=== PATIENT | male | born 1985 | race Caucasian/White ===

== ENCOUNTER 2022-11-10 10:27 | Emergency (ER) | payer OTHER, SELFPAY ==
[2022-11-10 10:32] VITALS: BP 131/90; PULSE 85; RESP 18; TEMP 36.9; O2SAT 99
[2022-11-10 11:44] VITALS: BP 131/90; PULSE 85; RESP 17; TEMP 36.9; O2SAT 99
--- NOTE | 2022-11-10 11:46 | ED.WOUNDLAC ---
HPI - Wound/Laceration General Chief Complaint: Wound/Laceration Stated Complaint: bites/arm Time Seen by Provider: 11/10/22 10:28 Source: patient Mode of arrival: ambulatory Limitations: no limitations History of Present Illness HPI narrative: patient is a 37-year-old male with bilateral upper arm abscesses that are draining at this time. Last tetanus shot was in the past 5 years. Patient believes he had spider bites. Onset (ago): week(s) (1) Location: other Extremity Location: Bilateral: arm Place: home Patient tetanus UTD: Yes Context: other ( Possible spider bites) Associated symptoms: pain Related Data Allergies Allergy/AdvReac Type Severity Reaction Status Date / Time tramadol Allergy Anaphylaxis Verified 11/10/22 10:31 Review of Systems Review of Systems: All systems reviewed & are unremarkable except as noted in HPI and below Constitutional: Constitutional: Reports no additional constitutional complaints Eyes: Eyes: Reports no additional eye complaints ENT: Reports system reviewed and no additional complaints, except as documented Cardiovascular: Cardiovascular: Reports no additional cardiovascular complaints Respiratory: Respiratory: Reports no additional respiratory complaints Gastrointestinal: Gastrointestinal: Reports no additional gastrointestinal complaints Genitourinary: Genitourinary: Reports no additional male genitourinary complaints Musculoskeletal: Musculoskeletal: Reports no additional musculoskeletal complaints Integumentary/Breasts: Skin/Breast: Reports system reviewed and no additional complaints, except as docu Neurologic: Reports system reviewed and no additional complaints, except as documented Psychiatric: Psychiatric: Reports no additional psychiatric complaints Endocrine: Endocrine: Reports no additional endocrine complaints Hematologic/Lymphatic: Hematologic/Lymphatic: Reports no additional hematologic/lymphatic complaints Allergic/Immunologic: Allergic/Immunologic: Reports no additional allergic/immunologic complaints Exam Const: General: healthy appearing and no acute distress Nutritional Appearance: well nourished HENMT: Head: normal to inspection Ears: external ears normal Neck: Neck: normal visual inspection Chest: Chest palpation & inspection: normal inspection of the chest Resp: Effort & Inspection: normal respiratory effort Auscultation: clear to auscultation bilaterally and no crackles Cardio: Rate: regular rate Rhythm: regular rhythm Heart sounds: no murmurs GI: Inspection: non-distended GI Palp: Yes Soft to palpation and No Tenderness to palpation present (GI) Auscultation: normal bowel sounds Back/Spine/Pelvis: Back: no CVA tenderness Skin: General skin exam: normal color, no jaundice and no pallor Other: patient has bilateral upper arm open wounds with pus seen coming from the center; there is no hard abscess or loculations needing for I&D at this time; there is light redness in a circular pattern around the abscesses of cellulitis Neuro: General: patient oriented x3, moves all extremities and no meningeal signs Psych: Mental Status: mental status grossly normal Affect: normal affect Attitude: cooperative Course Vital Signs Vital signs: Vital Signs Temperature 36.9 C 11/10/22 10:32 Pulse Rate 85 11/10/22 10:32 Respiratory Rate 18 11/10/22 10:32 Blood Pressure 131/90 11/10/22 10:32 Pulse Oximetry 99 11/10/22 10:32 Oxygen Delivery Room Air 11/10/22 10:32 Temperature 36.9 C 11/10/22 11:44 Pulse Rate 85 11/10/22 11:44 Respiratory Rate 17 11/10/22 11:44 Blood Pressure 131/90 11/10/22 11:44 Pulse Oximetry 99 11/10/22 11:44 Oxygen Delivery Room Air 11/10/22 11:44 Discharge Plan Discharge Clinical Impression: Abscess Cellulitis Qualifiers: Site of cellulitis: extremity Site of cellulitis of extremity: upper extremity Laterality: unspecified laterality Qualified Code(s): L03.1
== END 2022-11-10 11:44 | disposition home or self-care (01) ==
PROVIDERS: Emergency Provider Emergency Medicine
DX: L03.114 Cellulitis of left upper limb (principal); L03.113 Cellulitis of right upper limb; L02.413 Cutaneous abscess of right upper limb; L02.414 Cutaneous abscess of left upper limb
CPT/HCPCS: 99283

== ENCOUNTER 2024-12-03 02:39 | Emergency (ER) | payer OTHER, SELFPAY ==
[2024-12-03 02:46] VITALS: BP 125/96; PULSE 100; RESP 20; TEMP 37.1; O2SAT 94
--- NOTE | 2024-12-03 02:56 | ED.SKABFB ---
HPI - Skin/Abscess/Foreign Bdy General Chief complaint: Skin/Abscess/Foreign Body Stated complaint: SKIN PROBLEM Time Seen by Provider: 12/03/24 02:55 Source: patient Mode of arrival: ambulatory Limitations: no limitations History of Present Illness HPI narrative: This is a 39-year-old male that presents with some bites over his lower extremities and from itching over the last couple weeks as now presented with erythema on the scabs that is warm and tender to touch with no fever chills no shortness of breath. complaint: rash and insect bite/sting Onset (ago): week(s) Location: LLE and RLE Severity: mild Related Data Allergies Allergy/AdvReac Type Severity Reaction Status Date / Time tramadol Allergy Anaphylaxis Verified 12/03/24 02:55 Review of Systems Review of Systems: All systems reviewed & are unremarkable except as noted in HPI and below PMFSH Past Medical History Medical History Patient denies medical problems Exam Const: General: healthy appearing and no acute distress Nutritional Appearance: thin Orientation/consciousness: patient oriented x3 Limitations: no limitations Resp: Effort & Inspection: normal respiratory effort Auscultation: clear to auscultation bilaterally Cardio: Rate: regular rate Rhythm: regular rhythm GI: Auscultation: normal bowel sounds Rectal Exam: normal sphincter tone Skin: Wounds: wounds noted Extrem: General: normal to inspection and no clubbing, cyanosis or edema Course Course Emergency Course: Medical decision making narrative: The patient was evaluated by myself in the emergency department. History obtained from the patient was an independent historian physical exam performed witnessed by tach. Patient with some evidence of scabs with erythema consistent with cellulitis and given a dose of Augmentin p.o.. Repeat assessment Patient doing well with no acute distress Repeat vitals are stable Patient agrees with discussion after shared medical decision making and agrees with discharge All questions answered to the patient's satisfaction Follow-up with primary care physician within 3 to 5 days. Vital Signs Vital signs: Vital Signs Temperature 37.1 C 12/03/24 02:46 Pulse Rate 100 12/03/24 02:46 Respiratory Rate 20 12/03/24 02:46 Blood Pressure 125/96 H 12/03/24 02:46 Pulse Oximetry 94 12/03/24 02:46 Oxygen Delivery Room Air 12/03/24 02:46 Temperature 37.1 C 12/03/24 02:46 Pulse Rate 100 12/03/24 02:46 Respiratory Rate 20 12/03/24 02:46 Blood Pressure 125/96 H 12/03/24 02:46 Pulse Oximetry 94 12/03/24 02:46 Oxygen Delivery Room Air 12/03/24 02:46 Critical Care Time Critical Care Time Critical Care Time: No Discharge Plan Discharge Clinical Impression: Cellulitis, Insect bites Patient Disposition: Home Condition: Stable Instructions: Antibiotic Form, Cellulitis (ED) Additional Instructions: Advised patient to take medication as prescribed and to follow with primary care physician within next 3 to 5 days further evaluation and treatment. Patient Language: Setswana Prescriptions: New amoxicillin-pot clavulanate [Augmentin] 500-125 mg tablet 1 tablet PO TID Qty: 30 0RF Follow-up/Referrals: UNKNOWN,DOCTOR [Primary Care Provider] Time of Disposition: 03:00
--- OUTSIDE RECORDS SUMMARY | 2024-12-03 03:04 | XMS_ITS | Clinical Summary ---
Author Organization [facility] Address [address] [place] [address] Phone Care Team Providers Care [employer] Professor Name Role Phone Provider, None Primary Care Provider Unavailabl e Allergies No known active allergies Medications * This document contains information received from the source organization and may not represent a complete record from that organization. No known medications Active Problems Problem Noted Date Diagnosed Date Opioid withdrawal 05/06/2024 Marijuana abuse 05/06/2024 Bipolar 1 disorder 05/06/2024 Anxiety and depression 05/06/2024 Tobacco abuse 05/06/2024 Seizure 05/06/2024 Tobacco abuse Opioid withdrawal Bipolar 1 disorder Anxiety and depression Methamphetamine abuse Social History Tobacco Use Types Packs/Day Years Used Date Smoking Tobacco: Never Assessed [facility] Utilities Answer Date Recorded In the past 12 months has e electric, gas, oil, or water company threatened to shut off services in your home? Patient declined 05/06/2024 Social Connection and Isolation Panel Answer Date Recorded In a typical week, how many times do you talk on the phone with family, friends, or neighbors? Patient declined 05/06/2024 How often do you get togethe r with friends or relatives? Patient declined 05/06/2024 How often do you attend faith or denominational serv ices? Patient declined 05/06/2024 Do you belong to any clubs o r organizations such as faith groups, unions, fraternal or athletic groups, or school groups? Patient declined 05/06/2024 How often do you attend meet ings of the clubs or organizations you belong to? Patient declined 05/06/2024 Are you , , di vorced, , never , or living with a partner? Patient declined 05/06/2024 AUDIT-C Answer Date Recorded Q1: How often do you have a drink containing alc ohol? Patient declined 05/06/2024 Q2: How many drinks containi ng alcohol do you have on a typical day when you are drinking? Patient declined 05/06/2024 Q3: How often do you have si x or more drinks on one occasion? Patient declined 05/06/2024 Overall Financial Resource Strain (CARDIA) Answe r Date Recorded How hard is it for you to pa y for the very basics like food, housing, medical care, and heating? Patient declined 05/06/2024 [facility] - Occupational Stress Questionnaire Answer Date Recorded Do you feel stress - tense, restless, nervous, or anxious, or unable to sleep at night because your mind is troubled all the time - these days? Patient declined 05/06/2024 Exercise Vital Sign Answer Date Recorde d On average, how many days pe r week do you engage in moderate to strenuous exercise (like a brisk walk)? Patient declined On average, how many minutes do you engage in exercise at this level? Patient declined 05/06/2024 Hunger Vital Sign Answer Date Recorded Within the past 12 months, y ou worried that your food would run out before you got the money to buy more. Patient declined Within the past 12 months, t he food you bought just didn't last and you didn't have money to get more. Patient declined PRAPARE - Transportation Answer Date Re corded In the past 12 months, has l ack of transportation kept you from medical appointments or from getting medications? Patient declined 05/06/2024 In the past 12 months, has l ack of transportation kept you from meetings, work, or from getting things needed for daily living? Patient declined 05/06/2024 Housing Stability Vital Sign Answer Russel e Recorded In the last 12 months, was t here a time when you were not able to pay the mortgage or rent on time? Patient declined 05/07/19 25 In the past 12 months, how m any times have you moved where you were living? 1 05/06/2024 At any time in the past 12 m [facility], were you homeless or living in a [facility] (including now)? Patient declined 05/06/2024 Sex and Gender Information Value Date Recorded Sex Assigned at Not on file Legal Sex Male 12:21 PM CDT Gender Identity Not on file Sexual Orientation Not on file Last Filed Vital Signs Vital Sign Reading Time Taken Comments Blood Pressure 110/56 05/07/2024 3:00 PM CDT Pulse 90 05/07/2024 3:00 PM CDT Temperature 36.5 C (97.7 F) 05/07/2024 3:00 PM CDT Respiratory Rate 22 05/07/2024 4:45 PM CDT Oxygen Saturation 99% 05/07/2024 3:00 PM CDT Inhaled Oxygen Concentration - - Weight 61.2 kg (135 lb) 05/06/2024 12:28 PM CDT Height 167.6 cm (5' 6) 05/06/2024 12:28 PM CDT Body Mass Index 21.79 05/06/2024 12:28 PM CDT Plan of Treatment Not on file Insurance MEDICAID [facility] Advance Directives * Full Code (Latest Code Status on File) Date Activated Date Inactivated Comments 05/06/2024 3:28 PM CPR-Full Treat ment: FULL ARREST: Attempt Resuscitation/CPR wit intubation and mechanical ventilation. PRE-ARREST: Use entire range of life support measures to stabilize the patient. Care Teams [employer] Professor Relationship Specialty Start Date End Date Provider, None [place] PCP - General 05/06/24
[2024-12-03 03:20] VITALS: BP 111/85; PULSE 85; RESP 18; TEMP 37; O2SAT 100
== END 2024-12-03 03:20 | disposition home or self-care (01) ==
LOC: CHSED 03:02
PROVIDERS: Emergency Provider Emergency Medicine
DX: S80.862A Insect bite (nonvenomous), left lower leg, initial encounter (principal); S80.861A Insect bite (nonvenomous), right lower leg, initial encounter; L03.116 Cellulitis of left lower limb; L03.115 Cellulitis of right lower limb; W57.XXXA Bitten or stung by nonvenomous insect and other nonvenomous arthropods, initial encounter
CPT/HCPCS: 99283; A9270